=== PATIENT | female | born 1960 | race American Indian/Alaskan Native ===

== ENCOUNTER 2022-12-20 18:43 | Inpatient (IN) | payer BC ==
[2022-12-20 19:13] VITALS: BMI 20.3
[2022-12-20] MEDS ORDERED: ONDANSETRON *ODT* 4 MG TABLET SL PRN (20:22)
[2022-12-20] MEDS ORDERED: LOPERAMIDE HCL 2 MG CAPSULE PO PRN (20:22)
[2022-12-20] MEDS ORDERED: BENZONATATE 200 MG CAPSULE PO PRN (20:22)
[2022-12-20] MEDS ORDERED: NALOXONE HCL 0.4 MG/ML VIAL IM PRN (20:22)
[2022-12-20] MEDS ORDERED: DICYCLOMINE HCL 10 MG CAPSULE PO PRN (20:22)
[2022-12-20] MEDS ORDERED: NALOXONE HCL (KLOXXADO) 8 MG SPRAY NS PRN (20:22)
[2022-12-20] MEDS ORDERED: chlordiazePOXIDE HCL 25 MG CAPSULE PO PRN (20:22)
[2022-12-20] MEDS ORDERED: IBUPROFEN 600 MG TABLET (FP) PO PRN (20:22)
[2022-12-20] MEDS ORDERED: POLYETHYLENE GLYCOL (HEALTHYLAX) 3350 17 GM PACKET PO PRN (20:22)
[2022-12-20] MEDS ORDERED: IBUPROFEN 400 MG TABLET (FP) PO PRN (20:22)
[2022-12-20] MEDS ORDERED: BISMUTH SUBSALICYLATE 524 MG/30 ML PO PRN (20:22)
[2022-12-20] MEDS ORDERED: NICOTINE 10 MG CARTRIDGE (INHALER) IH PRN (20:22)
[2022-12-20] MEDS ORDERED: ALBUTEROL SO4 2.5/IPRATROPIUM 0.5 INH SOL 3 ML VIAL.NEB. NEB ONE ×2 (20:25→20:32)
[2022-12-20] MEDS ORDERED: predniSONE 20 MG TABLET (UD) PO ONE (20:30)
[2022-12-20] MEDS: PRENATAL VITAMINS W/ FOLIC ACID TABLET (FP) PO SCH (21:31)
[2022-12-20] MEDS: THIAMINE HCL 100 MG TABLET (FP) PO SCH (21:59)
[2022-12-20] MEDS: ALBUTEROL SO4 HFA INHALER IH PRN (21:59)
[2022-12-20] MEDS: MELATONIN 5 MG TABLETS PO SCH (21:59)
[2022-12-20] MEDS: MONTELUKAST NA 10 MG TABLET PO SCH (21:59)
[2022-12-20] MEDS: chlordiazePOXIDE HCL 25 MG CAPSULE PO SCH (22:03)
[2022-12-20] MEDS: ACETAMINOPHEN 325 MG TABLET (FP) PO PRN (22:05)
[2022-12-21] MEDS: ALBUTEROL SO4 HFA INHALER IH PRN ×4 (01:17→22:17)
[2022-12-21] MEDS: METHOCARBAMOL 500 MG TABLET PO PRN ×3 (01:21→22:20)
[2022-12-21] MEDS: hydrOXYzine PAMOATE 25 MG CAPSULE (FP) PO PRN ×3 (01:21→22:20)
[2022-12-21] MEDS: MAGNESIUM HYDROX 2400MG/30ML ORAL SUSPENSION 30 ML CUP PO PRN ×3 (01:21→22:22)
[2022-12-21] MEDS: chlordiazePOXIDE HCL 25 MG CAPSULE PO SCH ×4 (05:51→22:18)
[2022-12-21] MEDS: guaiFENesin 600 MG TABLET.ER (FP) PO PRN (06:05)
[2022-12-21] MEDS ORDERED: ALBUTEROL SO4 2.5/IPRATROPIUM 0.5 INH SOL 3 ML VIAL.NEB. NEB SCH (08:00)
[2022-12-21] MEDS: PRENATAL VITAMINS W/ FOLIC ACID TABLET (FP) PO SCH (10:22)
[2022-12-21] MEDS: amLODIPine BESYLATE 10 MG TABLET (FP) PO SCH (10:23)
[2022-12-21] MEDS: predniSONE 20 MG TABLET (UD) PO SCH (10:23)
[2022-12-21 11:48] LABS: HEMATOCRIT 38.1 % (32.4-45.2); HEMOGLOBIN 13.2 GM/dL (10.7-15.3); MCH 34.2 pg (25.7-33.7); MCHC 34.6 g/dl (32.0-36.0); MEAN CELL VOLUME 98.7 fl (80-96); PLATELET COUNT 335 10^3/uL (134-434); RBC 3.86 M/mm3 (3.60-5.2); RDW 14.4 % (11.6-15.6); WHITE BLOOD COUNT 8.1 K/mm3 (4.0-10.0)
[2022-12-21 11:49] LABS: ALBUMIN 3.6 g/dl (3.4-5.0); BLOOD UREA NITROGEN 18.1 mg/dL (7-18)
[2022-12-21 11:52] LABS: CREATININE 0.7 mg/dL (0.55-1.3)
[2022-12-21 11:54] LABS: BILIRUBIN,TOTAL 0.3 mg/dL (0.2-1); TOT PROT 6.8 g/dl (6.4-8.2)
[2022-12-21] MEDS: ALBUTEROL SO4 2.5/IPRATROPIUM 0.5 INH SOL 3 ML VIAL.NEB. NEB SCH ×2 (14:00→19:26)
[2022-12-21] MEDS: DOCUSATE SODIUM 100 MG CAPSULE (FP) PO SCH ×2 (14:42→22:18)
[2022-12-21] MEDS: BENZOCAINE/MENTHOL (CHLORASEPTIC ) LOZENGE MM PRN (19:55)
[2022-12-21] MEDS: MAG HYDROX/AL HYDROX/SIMETH 30 ML UNIT-DOSE CUP PO PRN (21:23)
[2022-12-21] MEDS: MELATONIN 5 MG TABLETS PO SCH (22:18)
[2022-12-21] MEDS: THIAMINE HCL 100 MG TABLET (FP) PO SCH (22:18)
[2022-12-21] MEDS: ATORVASTATIN CA 40 MG TABLET (FP) PO SCH (22:18)
[2022-12-21] MEDS: MONTELUKAST NA 10 MG TABLET PO SCH (22:18)
[2022-12-22] MEDS: ALBUTEROL SO4 2.5/IPRATROPIUM 0.5 INH SOL 3 ML VIAL.NEB. NEB SCH ×4 (00:46→18:49)
[2022-12-22] MEDS: chlordiazePOXIDE HCL 25 MG CAPSULE PO SCH ×4 (05:54→22:16)
[2022-12-22] MEDS: DOCUSATE SODIUM 100 MG CAPSULE (FP) PO SCH ×3 (05:55→22:15)
[2022-12-22] MEDS: ALBUTEROL SO4 HFA INHALER IH PRN ×2 (08:45→22:14)
[2022-12-22] MEDS: PRENATAL VITAMINS W/ FOLIC ACID TABLET (FP) PO SCH (10:35)
[2022-12-22] MEDS: SERTRALINE HCL 25 MG TABLET (FP) PO SCH (10:36)
[2022-12-22] MEDS: amLODIPine BESYLATE 10 MG TABLET (FP) PO SCH (10:36)
[2022-12-22] MEDS: predniSONE 20 MG TABLET (UD) PO SCH (10:36)
[2022-12-22] MEDS: MAGNESIUM HYDROX 2400MG/30ML ORAL SUSPENSION 30 ML CUP PO PRN (11:03)
[2022-12-22] MEDS: guaiFENesin 600 MG TABLET.ER (FP) PO PRN (11:12)
[2022-12-22] MEDS: hydrOXYzine PAMOATE 25 MG CAPSULE (FP) PO PRN (16:35)
[2022-12-22] MEDS: guaiFENesin 200 MG/10 ML 10 ML UNIT-DOSE CUPS PO PRN (16:36)
[2022-12-22] MEDS: INSULIN SLIDING SCALE (NOVOLOG) 1 VIAL SQ SCH (17:59)
[2022-12-22] MEDS: MONTELUKAST NA 10 MG TABLET PO SCH (22:15)
[2022-12-22] MEDS: ATORVASTATIN CA 40 MG TABLET (FP) PO SCH (22:15)
[2022-12-22] MEDS: MELATONIN 5 MG TABLETS PO SCH (22:16)
[2022-12-22] MEDS: THIAMINE HCL 100 MG TABLET (FP) PO SCH (22:16)
[2022-12-23] MEDS ORDERED: chlordiazePOXIDE HCL 10 MG CAPSULE PO PRN
[2022-12-23] MEDS: ALBUTEROL SO4 2.5/IPRATROPIUM 0.5 INH SOL 3 ML VIAL.NEB. NEB SCH ×2 (01:00→06:05)
[2022-12-23] MEDS: chlordiazePOXIDE HCL 10 MG CAPSULE PO SCH ×4 (05:33→22:16)
[2022-12-23] MEDS: DOCUSATE SODIUM 100 MG CAPSULE (FP) PO SCH ×3 (05:34→22:16)
[2022-12-23] MEDS: ALBUTEROL SO4 HFA INHALER IH PRN ×4 (05:35→20:57)
[2022-12-23] MEDS: INSULIN SLIDING SCALE (NOVOLOG) 1 VIAL SQ SCH ×3 (06:51→17:12)
[2022-12-23] MEDS: METHOCARBAMOL 500 MG TABLET PO PRN ×2 (09:08→22:16)
[2022-12-23] MEDS: ACETAMINOPHEN 325 MG TABLET (FP) PO PRN ×2 (09:09→22:14)
[2022-12-23] MEDS: guaiFENesin 200 MG/10 ML 10 ML UNIT-DOSE CUPS PO PRN ×2 (09:09→22:17)
[2022-12-23] MEDS: PRENATAL VITAMINS W/ FOLIC ACID TABLET (FP) PO SCH (10:08)
[2022-12-23] MEDS: amLODIPine BESYLATE 10 MG TABLET (FP) PO SCH (10:08)
[2022-12-23] MEDS: predniSONE 20 MG TABLET (UD) PO SCH (10:08)
[2022-12-23] MEDS: SERTRALINE HCL 25 MG TABLET (FP) PO SCH (10:09)
[2022-12-23] MEDS: MELATONIN 5 MG TABLETS PO SCH (22:15)
[2022-12-23] MEDS: THIAMINE HCL 100 MG TABLET (FP) PO SCH (22:16)
[2022-12-23] MEDS: ATORVASTATIN CA 40 MG TABLET (FP) PO SCH (22:16)
[2022-12-23] MEDS: MONTELUKAST NA 10 MG TABLET PO SCH (22:16)
[2022-12-24] MEDS: hydrOXYzine PAMOATE 25 MG CAPSULE (FP) PO PRN ×3 (03:15→22:13)
[2022-12-24] MEDS: ALBUTEROL SO4 HFA INHALER IH PRN ×4 (03:16→23:29)
[2022-12-24] MEDS: DOCUSATE SODIUM 100 MG CAPSULE (FP) PO SCH ×3 (05:34→22:10)
[2022-12-24] MEDS: chlordiazePOXIDE HCL 10 MG CAPSULE PO SCH ×2 (05:38→17:10)
[2022-12-24] MEDS: INSULIN SLIDING SCALE (NOVOLOG) 1 VIAL SQ SCH ×3 (06:34→17:05)
[2022-12-24] MEDS: SERTRALINE HCL 50 MG TABLET (FP) PO SCH (10:08)
[2022-12-24] MEDS: PRENATAL VITAMINS W/ FOLIC ACID TABLET (FP) PO SCH (10:08)
[2022-12-24] MEDS: predniSONE 20 MG TABLET (UD) PO SCH (10:08)
[2022-12-24] MEDS: ACETAMINOPHEN 325 MG TABLET (FP) PO PRN (10:08)
[2022-12-24] MEDS: amLODIPine BESYLATE 10 MG TABLET (FP) PO SCH (10:08)
[2022-12-24] MEDS: guaiFENesin 200 MG/10 ML 10 ML UNIT-DOSE CUPS PO PRN (10:44)
[2022-12-24] MEDS: MAG HYDROX/AL HYDROX/SIMETH 30 ML UNIT-DOSE CUP PO PRN (16:37)
[2022-12-24 18:04] VITALS: RESP 18
[2022-12-24] MEDS: MELATONIN 5 MG TABLETS PO SCH (22:10)
[2022-12-24] MEDS: MONTELUKAST NA 10 MG TABLET PO SCH (22:11)
[2022-12-24] MEDS: THIAMINE HCL 100 MG TABLET (FP) PO SCH (22:11)
[2022-12-24] MEDS: ATORVASTATIN CA 40 MG TABLET (FP) PO SCH (22:12)
[2022-12-24] MEDS: BENZOCAINE/MENTHOL (CHLORASEPTIC ) LOZENGE MM PRN (23:26)
[2022-12-25] MEDS ORDERED: chlordiazePOXIDE HCL 10 MG CAPSULE PO ONE (05:00)
[2022-12-25] MEDS: ALBUTEROL SO4 HFA INHALER IH PRN ×2 (05:14→09:26)
[2022-12-25] MEDS: DOCUSATE SODIUM 100 MG CAPSULE (FP) PO SCH (05:41)
[2022-12-25] MEDS: INSULIN SLIDING SCALE (NOVOLOG) 1 VIAL SQ SCH (06:18)
[2022-12-25] MEDS: SERTRALINE HCL 50 MG TABLET (FP) PO SCH (09:25)
[2022-12-25] MEDS: amLODIPine BESYLATE 10 MG TABLET (FP) PO SCH (09:25)
[2022-12-25] MEDS: PRENATAL VITAMINS W/ FOLIC ACID TABLET (FP) PO SCH (09:26)
[2022-12-25 09:31] VITALS: BP 115/67; PULSE 91; TEMP 98.9
== END 2022-12-25 10:40 | disposition home or self-care (01) | DRG 774 ==
LOC: YASAS 18:43 → Y3N 20:29
PROVIDERS: ADMIT Allergy & Immunology; ATTEND Surgery
PROC: HZ2ZZZZ Detoxification Services for Substance Abuse Treatment (ICD-10-PCS; principal; 2022-12-20)
DX: F10.230 Alcohol dependence with withdrawal, uncomplicated (principal); F14.10 Cocaine abuse, uncomplicated; F14.20 Cocaine dependence, uncomplicated; F13.20 Sedative, hypnotic or anxiolytic dependence, uncomplicated; F12.20 Cannabis dependence, uncomplicated; E78.2 Mixed hyperlipidemia; I10 Essential (primary) hypertension; J44.1 Chronic obstructive pulmonary disease with (acute) exacerbation; E11.9 Type 2 diabetes mellitus without complications; F19.24 Other psychoactive substance dependence with psychoactive substance-induced mood disorder; H91.92 Unspecified hearing loss, left ear; S04 Injury of cranial nerve; X95.9XXS Assault by unspecified firearm discharge, sequela; Y92.9 Unspecified place or not applicable; Z87.828 Personal history of other (healed) physical injury and trauma; Z88.8 Allergy status to other drugs, medicaments and biological substances; Z72.0 Tobacco use
CPT/HCPCS: 36415; 80053; 82962; 85027; 86593; 86780; 87811; 94640; C9803-CS; U0003; U0005

== ENCOUNTER 2023-01-06 10:57 | Inpatient (IN) | payer BC ==
[2023-01-06 11:22] VITALS: BMI 20.7
[2023-01-06] MEDS ORDERED: ONDANSETRON *ODT* 4 MG TABLET SL PRN (12:53)
[2023-01-06] MEDS ORDERED: DICYCLOMINE HCL 10 MG CAPSULE PO PRN (12:53)
[2023-01-06] MEDS ORDERED: BISMUTH SUBSALICYLATE 524 MG/30 ML PO PRN (12:53)
[2023-01-06] MEDS ORDERED: MAGNESIUM HYDROX 2400MG/30ML ORAL SUSPENSION 30 ML CUP PO PRN (12:53)
[2023-01-06] MEDS ORDERED: IBUPROFEN 400 MG TABLET (FP) PO PRN (12:53)
[2023-01-06] MEDS ORDERED: NICOTINE 10 MG CARTRIDGE (INHALER) IH PRN (12:53)
[2023-01-06] MEDS ORDERED: MAG HYDROX/AL HYDROX/SIMETH 30 ML UNIT-DOSE CUP PO PRN (12:53)
[2023-01-06] MEDS ORDERED: LOPERAMIDE HCL 2 MG CAPSULE PO PRN (12:53)
[2023-01-06] MEDS ORDERED: guaiFENesin 600 MG TABLET.ER (FP) PO PRN (12:53)
[2023-01-06] MEDS ORDERED: POLYETHYLENE GLYCOL (HEALTHYLAX) 3350 17 GM PACKET PO PRN (12:53)
[2023-01-06] MEDS ORDERED: BENZOCAINE/MENTHOL (CHLORASEPTIC ) LOZENGE MM PRN (12:53)
[2023-01-06] MEDS ORDERED: BENZONATATE 200 MG CAPSULE PO PRN (12:53)
[2023-01-06] MEDS ORDERED: NICOTINE 7 MG/24 HOURS TOPICAL PATCH TD PRN (12:53)
[2023-01-06] MEDS: chlordiazePOXIDE HCL 25 MG CAPSULE PO PRN (13:51)
[2023-01-06] MEDS ORDERED: chlordiazePOXIDE HCL 25 MG CAPSULE ONE (13:51)
[2023-01-06] MEDS: IBUPROFEN 600 MG TABLET (FP) PO PRN (14:06)
[2023-01-06] MEDS: DOCUSATE SODIUM 100 MG CAPSULE (FP) PO SCH ×2 (14:06→22:40)
[2023-01-06] MEDS: METHOCARBAMOL 500 MG TABLET PO PRN ×2 (14:06→19:17)
[2023-01-06] MEDS: hydrOXYzine PAMOATE 25 MG CAPSULE (FP) PO PRN ×2 (14:06→17:33)
[2023-01-06] MEDS: chlordiazePOXIDE HCL 25 MG CAPSULE PO SCH ×2 (17:33→22:40)
[2023-01-06] MEDS: ALBUTEROL SO4 HFA INHALER IH PRN ×2 (17:35→22:43)
[2023-01-06] MEDS ORDERED: MELATONIN 5 MG TABLETS PO SCH (22:00)
[2023-01-06] MEDS: THIAMINE HCL 100 MG TABLET (FP) PO SCH (22:39)
[2023-01-06] MEDS: SUVOREXANT 10 MG TABLET PO PRN (22:40)
[2023-01-06] MEDS: FAMOTIDINE 20 MG TABLET PO SCH (22:40)
[2023-01-06] MEDS: MONTELUKAST NA 10 MG TABLET PO SCH (22:40)
[2023-01-07] MEDS: chlordiazePOXIDE HCL 25 MG CAPSULE PO PRN (00:58)
[2023-01-07] MEDS: chlordiazePOXIDE HCL 25 MG CAPSULE PO SCH ×4 (05:36→22:09)
[2023-01-07] MEDS: DOCUSATE SODIUM 100 MG CAPSULE (FP) PO SCH ×3 (05:36→22:07)
[2023-01-07] MEDS: ALBUTEROL SO4 HFA INHALER IH PRN ×5 (05:47→23:49)
[2023-01-07] MEDS: IBUPROFEN 600 MG TABLET (FP) PO PRN ×2 (06:19→17:24)
[2023-01-07] MEDS: amLODIPine BESYLATE 10 MG TABLET (FP) PO SCH (09:46)
[2023-01-07] MEDS: TIOTROPIUM BROMIDE 2.5 MCG (SPIRIVA) RESPIMAT INHALER IH SCH (09:46)
[2023-01-07] MEDS: SERTRALINE HCL 50 MG TABLET (FP) PO SCH (09:46)
[2023-01-07] MEDS: PRENATAL VITAMINS W/ FOLIC ACID TABLET (FP) PO SCH (09:46)
[2023-01-07] MEDS: LOSARTAN POTASSIUM 50 MG TABLET PO SCH (09:46)
[2023-01-07] MEDS: FAMOTIDINE 20 MG TABLET PO SCH ×2 (09:46→22:08)
[2023-01-07] MEDS: THIAMINE HCL 100 MG TABLET (FP) PO SCH (22:07)
[2023-01-07] MEDS: MONTELUKAST NA 10 MG TABLET PO SCH (22:08)
[2023-01-07] MEDS: SUVOREXANT 10 MG TABLET PO PRN (22:09)
[2023-01-08] MEDS: DOCUSATE SODIUM 100 MG CAPSULE (FP) PO SCH ×3 (05:13→22:03)
[2023-01-08] MEDS: chlordiazePOXIDE HCL 25 MG CAPSULE PO SCH ×4 (05:13→22:04)
[2023-01-08] MEDS: IBUPROFEN 600 MG TABLET (FP) PO PRN ×4 (05:13→23:29)
[2023-01-08] MEDS: TIOTROPIUM BROMIDE 2.5 MCG (SPIRIVA) RESPIMAT INHALER IH SCH (10:32)
[2023-01-08] MEDS: LOSARTAN POTASSIUM 50 MG TABLET PO SCH (10:33)
[2023-01-08] MEDS: PRENATAL VITAMINS W/ FOLIC ACID TABLET (FP) PO SCH (10:33)
[2023-01-08] MEDS: amLODIPine BESYLATE 10 MG TABLET (FP) PO SCH (10:34)
[2023-01-08] MEDS: SERTRALINE HCL 50 MG TABLET (FP) PO SCH (10:34)
[2023-01-08] MEDS: FAMOTIDINE 20 MG TABLET PO SCH ×2 (10:34→22:03)
[2023-01-08] MEDS: ALBUTEROL SO4 HFA INHALER IH PRN ×3 (12:51→22:05)
[2023-01-08] MEDS: METHOCARBAMOL 500 MG TABLET PO PRN (22:02)
[2023-01-08] MEDS: SUVOREXANT 15 MG TABLET PO PRN (22:02)
[2023-01-08] MEDS: THIAMINE HCL 100 MG TABLET (FP) PO SCH (22:03)
[2023-01-08] MEDS: MONTELUKAST NA 10 MG TABLET PO SCH (22:03)
[2023-01-09] MEDS ORDERED: chlordiazePOXIDE HCL 10 MG CAPSULE PO PRN
[2023-01-09] MEDS: chlordiazePOXIDE HCL 10 MG CAPSULE PO SCH ×4 (05:39→22:02)
[2023-01-09] MEDS: DOCUSATE SODIUM 100 MG CAPSULE (FP) PO SCH ×3 (05:39→22:03)
[2023-01-09] MEDS: ALBUTEROL SO4 HFA INHALER IH PRN ×4 (07:56→22:06)
[2023-01-09] MEDS: hydrOXYzine PAMOATE 25 MG CAPSULE (FP) PO PRN ×3 (08:37→22:03)
[2023-01-09] MEDS: TIOTROPIUM BROMIDE 2.5 MCG (SPIRIVA) RESPIMAT INHALER IH SCH (10:08)
[2023-01-09] MEDS: PRENATAL VITAMINS W/ FOLIC ACID TABLET (FP) PO SCH (10:08)
[2023-01-09] MEDS: FAMOTIDINE 20 MG TABLET PO SCH ×2 (10:08→22:03)
[2023-01-09] MEDS: amLODIPine BESYLATE 10 MG TABLET (FP) PO SCH (10:08)
[2023-01-09] MEDS: LOSARTAN POTASSIUM 50 MG TABLET PO SCH (10:08)
[2023-01-09] MEDS: SERTRALINE HCL 50 MG TABLET (FP) PO SCH (10:08)
[2023-01-09] MEDS: IBUPROFEN 600 MG TABLET (FP) PO PRN (10:10)
[2023-01-09] MEDS: ACETAMINOPHEN 325 MG TABLET (FP) PO PRN (14:51)
[2023-01-09] MEDS: METHOCARBAMOL 500 MG TABLET PO PRN (17:29)
[2023-01-09] MEDS: MONTELUKAST NA 10 MG TABLET PO SCH (22:03)
[2023-01-09] MEDS: THIAMINE HCL 100 MG TABLET (FP) PO SCH (22:03)
[2023-01-09] MEDS: SUVOREXANT 15 MG TABLET PO PRN (22:06)
[2023-01-10] MEDS: ALBUTEROL SO4 HFA INHALER IH PRN ×4 (03:10→16:49)
[2023-01-10] MEDS: DOCUSATE SODIUM 100 MG CAPSULE (FP) PO SCH ×3 (05:49→22:00)
[2023-01-10] MEDS: chlordiazePOXIDE HCL 10 MG CAPSULE PO SCH ×2 (05:50→16:50)
[2023-01-10] MEDS: IBUPROFEN 600 MG TABLET (FP) PO PRN (05:52)
[2023-01-10] MEDS: TIOTROPIUM BROMIDE 2.5 MCG (SPIRIVA) RESPIMAT INHALER IH SCH (10:25)
[2023-01-10] MEDS: SERTRALINE HCL 50 MG TABLET (FP) PO SCH (10:26)
[2023-01-10] MEDS: FAMOTIDINE 20 MG TABLET PO SCH ×2 (10:26→21:59)
[2023-01-10] MEDS: LOSARTAN POTASSIUM 50 MG TABLET PO SCH (10:26)
[2023-01-10] MEDS: PRENATAL VITAMINS W/ FOLIC ACID TABLET (FP) PO SCH (10:26)
[2023-01-10] MEDS: amLODIPine BESYLATE 10 MG TABLET (FP) PO SCH (10:26)
[2023-01-10] MEDS: ALBUTEROL SO4 0.083% IH SOL 2.5 MG/3 ML VIAL.NEB. NEB PRN ×2 (12:15→22:03)
[2023-01-10] MEDS: SUVOREXANT 15 MG TABLET PO PRN (21:55)
[2023-01-10] MEDS: MONTELUKAST NA 10 MG TABLET PO SCH (21:59)
[2023-01-10] MEDS: THIAMINE HCL 100 MG TABLET (FP) PO SCH (21:59)
[2023-01-11] MEDS: ALBUTEROL SO4 HFA INHALER IH PRN ×2 (03:08→11:50)
[2023-01-11] MEDS ORDERED: chlordiazePOXIDE HCL 10 MG CAPSULE PO ONE (05:00)
[2023-01-11] MEDS: DOCUSATE SODIUM 100 MG CAPSULE (FP) PO SCH ×2 (06:01→13:22)
[2023-01-11] MEDS: ACETAMINOPHEN 325 MG TABLET (FP) PO PRN (06:23)
[2023-01-11] MEDS: ALBUTEROL SO4 0.083% IH SOL 2.5 MG/3 ML VIAL.NEB. NEB PRN (07:04)
[2023-01-11 09:34] VITALS: BP 124/75; PULSE 83; RESP 17; TEMP 97.2
[2023-01-11] MEDS: SERTRALINE HCL 50 MG TABLET (FP) PO SCH (10:25)
[2023-01-11] MEDS: PRENATAL VITAMINS W/ FOLIC ACID TABLET (FP) PO SCH (10:25)
[2023-01-11] MEDS: FAMOTIDINE 20 MG TABLET PO SCH (10:25)
[2023-01-11] MEDS: TIOTROPIUM BROMIDE 2.5 MCG (SPIRIVA) RESPIMAT INHALER IH SCH (10:25)
[2023-01-11] MEDS: LOSARTAN POTASSIUM 50 MG TABLET PO SCH (10:25)
[2023-01-11] MEDS: amLODIPine BESYLATE 10 MG TABLET (FP) PO SCH (10:25)
[2023-01-11] MEDS: hydrOXYzine PAMOATE 25 MG CAPSULE (FP) PO PRN (13:22)
== END 2023-01-11 13:42 | disposition home or self-care (01) | DRG 774 ==
LOC: YASAS 10:57 → Y6N 13:18
PROVIDERS: ADMIT Allergy & Immunology; ATTEND Surgery
PROC: HZ2ZZZZ Detoxification Services for Substance Abuse Treatment (ICD-10-PCS; principal; 2023-01-06)
DX: F10.230 Alcohol dependence with withdrawal, uncomplicated (principal); F14.20 Cocaine dependence, uncomplicated; F13.20 Sedative, hypnotic or anxiolytic dependence, uncomplicated; F17.210 Nicotine dependence, cigarettes, uncomplicated; F19.282 Other psychoactive substance dependence with psychoactive substance-induced sleep disorder; E78.1 Pure hyperglyceridemia; I10 Essential (primary) hypertension; J43.0 Unilateral pulmonary emphysema [MacLeod's syndrome]; K21.9 Gastro-esophageal reflux disease without esophagitis; H91.92 Unspecified hearing loss, left ear; Z88.8 Allergy status to other drugs, medicaments and biological substances
CPT/HCPCS: 26055; 87811; 94640; C9803-CS; U0003; U0005

== ENCOUNTER 2023-12-04 13:02 | Inpatient (IN) | payer BC ==
[2023-12-04 13:58] VITALS: BMI 20.9
[2023-12-04] MEDS ORDERED: hydrOXYzine PAMOATE 25 MG CAPSULE (FP) PO PRN (16:57)
[2023-12-04] MEDS ORDERED: NALOXONE HCL (KLOXXADO) 8 MG SPRAY NS PRN (16:57)
[2023-12-04] MEDS ORDERED: MAG HYDROX/AL HYDROX/SIMETH 30 ML UNIT-DOSE CUP PO PRN (16:57)
[2023-12-04] MEDS ORDERED: BISMUTH SUBSALICYLATE 524 MG/30 ML PO PRN (16:57)
[2023-12-04] MEDS ORDERED: MAGNESIUM HYDROX 2400MG/30ML ORAL SUSPENSION 30 ML CUP PO PRN (16:57)
[2023-12-04] MEDS ORDERED: IBUPROFEN 400 MG TABLET (FP) PO PRN (16:57)
[2023-12-04] MEDS ORDERED: LOPERAMIDE HCL 2 MG CAPSULE PO PRN (16:57)
[2023-12-04] MEDS ORDERED: ONDANSETRON *ODT* 4 MG TABLET SL PRN (16:57)
[2023-12-04] MEDS ORDERED: BENZONATATE 200 MG CAPSULE PO PRN (16:57)
[2023-12-04] MEDS ORDERED: POLYETHYLENE GLYCOL (HEALTHYLAX) 3350 17 GM PACKET PO PRN (16:57)
[2023-12-04] MEDS ORDERED: NALOXONE HCL 0.4 MG/ML VIAL IM PRN (16:57)
[2023-12-04] MEDS ORDERED: ALBUTEROL SO4 2.5/IPRATROPIUM 0.5 INH SOL 3 ML VIAL.NEB. NEB ONE (17:19)
[2023-12-04] MEDS ORDERED: LORazepam 2 MG TABLET ONE (17:20)
[2023-12-04] MEDS: LORazepam 2 MG TABLET PO SCH (17:29)
[2023-12-04] MEDS: ALBUTEROL SO4 2.5/IPRATROPIUM 0.5 INH SOL 3 ML VIAL.NEB. NEB ONE ×2 (17:32→21:56)
[2023-12-04] MEDS: predniSONE 20 MG TABLET (UD) PO SCH (20:14)
[2023-12-04] MEDS ORDERED: MELATONIN 5 MG TABLETS PO SCH (22:00)
[2023-12-04] MEDS: THIAMINE HCL 100 MG TABLET (FP) PO SCH (22:10)
[2023-12-04] MEDS: ACETAMINOPHEN 325 MG TABLET (FP) PO PRN (22:23)
[2023-12-05] MEDS: METHOCARBAMOL 500 MG TABLET PO PRN (04:27)
[2023-12-05] MEDS: ALBUTEROL SO4 HFA INHALER IH PRN (04:28)
[2023-12-05] MEDS: guaiFENesin 600 MG TABLET.ER (FP) PO PRN (05:32)
[2023-12-05] MEDS: LORazepam 1 MG TABLET PO PRN (08:01)
[2023-12-05] MEDS ORDERED: ALBUTEROL SO4 HFA INHALER IH PRN (08:31)
[2023-12-05] MEDS: LOSARTAN POTASSIUM 50 MG TABLET PO SCH (10:05)
[2023-12-05] MEDS: amLODIPine BESYLATE 10 MG TABLET (FP) PO SCH (10:05)
[2023-12-05] MEDS: MONTELUKAST NA 10 MG TABLET PO SCH (10:06)
[2023-12-05] MEDS: PRENATAL VITAMINS W/ FOLIC ACID TABLET (FP) PO SCH (10:06)
[2023-12-05 11:27] LABS: HEMATOCRIT 38.3 % (32.4-45.2); HEMOGLOBIN 13.4 GM/dL (10.7-15.3); MCH 34.9 pg (25.7-33.7); MCHC 35.1 g/dl (32.0-36.0); MEAN CELL VOLUME 99.6 fl (80-96); MEAN PLT VOLUME 7.9 fl (7.5-11.1); PLATELET COUNT 402 10^3/uL (134-434); RBC 3.85 M/mm3 (3.60-5.2); RDW 14.2 % (11.6-15.6); WHITE BLOOD COUNT 7.1 K/mm3 (4.0-10.0)
[2023-12-05 12:06] LABS: CHLORIDE 107 mmol/L (98-107); SODIUM 139 mmol/L (136-145)
[2023-12-05 12:09] LABS: ALBUMIN 3.6 g/dl (3.4-5.0); ANION GAP 5 mmol/L (4-13); BLOOD UREA NITROGEN 14.9 mg/dL (7-18); CO2 27 mmol/L (21-32); GLUCOSE,RANDOM 138 mg/dL (74-106)
[2023-12-05 12:12] LABS: CREATININE 0.6 mg/dL (0.55-1.3); SGOT/AST 15 U/L (15-37); SGPT/ALT 20 U/L (13-61)
[2023-12-05 12:13] LABS: BILIRUBIN,TOTAL 0.2 mg/dL (0.2-1); TOT PROT 7.1 g/dl (6.4-8.2)
[2023-12-05 12:15] LABS: ALK PHOS 80 U/L (45-117)
[2023-12-05] MEDS: BUDESONIDE/FORMETEROL FUMARATE 160/4.5 mcg INHALER IH SCH (12:44)
[2023-12-05] MEDS: ATORVASTATIN CA 40 MG TABLET (FP) PO SCH (22:19)
[2023-12-05] MEDS: SUVOREXANT 5 MG TABLET PO PRN (22:21)
[2023-12-06] MEDS: LORazepam 1 MG TABLET PO SCH (04:02)
[2023-12-06] MEDS: hydrOXYzine PAMOATE 25 MG CAPSULE (FP) PO PRN (10:49)
[2023-12-06] MEDS: TIOTROPIUM BROMIDE 2.5 MCG (SPIRIVA) RESPIMAT INHALER IH SCH (12:35)
[2023-12-06] MEDS: SUVOREXANT 10 MG TABLET PO PRN (22:17)
[2023-12-07] MEDS: LORazepam 0.5 MG TABLET PO PRN (02:13)
[2023-12-07] MEDS: LORazepam 0.5 MG TABLET PO SCH (05:09)
[2023-12-07] MEDS: hydrOXYzine PAMOATE 25 MG CAPSULE (FP) PO ONE (10:26)
[2023-12-07] MEDS: BENZOCAINE/MENTHOL (CHLORASEPTIC ) LOZENGE MM PRN (18:32)
[2023-12-07] MEDS: traZODone HCL 50 MG TABLET (FP) PO SCH (22:08)
[2023-12-08] MEDS: IBUPROFEN 600 MG TABLET (FP) PO PRN (02:29)
[2023-12-08] MEDS: LORazepam 0.5 MG TABLET PO ONE (05:07)
[2023-12-08 05:45] VITALS: RESP 18
[2023-12-08 09:14] VITALS: BP 143/81; PULSE 100; TEMP 97.4
[2023-12-08] MEDS: DICYCLOMINE HCL 10 MG CAPSULE PO PRN (09:54)
== END 2023-12-08 10:38 | disposition home or self-care (01) | DRG 774 ==
LOC: YASAS 13:02 → Y3N 19:36
PROVIDERS: ADMIT Allergy & Immunology; ATTEND Surgery
PROC: HZ2ZZZZ Detoxification Services for Substance Abuse Treatment (ICD-10-PCS; principal; 2023-12-04)
DX: F10.230 Alcohol dependence with withdrawal, uncomplicated (principal); F14.20 Cocaine dependence, uncomplicated; F17.210 Nicotine dependence, cigarettes, uncomplicated; F32.A Depression, unspecified; E78.1 Pure hyperglyceridemia; I10 Essential (primary) hypertension; J43.0 Unilateral pulmonary emphysema [MacLeod's syndrome]; H91.8X2 Other specified hearing loss, left ear; R76.8 Other specified abnormal immunological findings in serum; Z86.19 Personal history of other infectious and parasitic diseases; Z87.828 Personal history of other (healed) physical injury and trauma
CPT/HCPCS: 36415; 80053; 80305; 80307; 85027; 86593; 86780; 87635; 93005; 93010; 94640

== ENCOUNTER 2024-04-03 10:02 | Inpatient (IN) | payer BC ==
[2024-04-03 10:44] VITALS: BMI 21.5
[2024-04-03] MEDS ORDERED: LOPERAMIDE HCL 2 MG CAPSULE PO PRN (11:15)
[2024-04-03] MEDS ORDERED: NICOTINE POLACRILEX 2 MG LOZENGE BC PRN (11:15)
[2024-04-03] MEDS ORDERED: MAGNESIUM HYDROX 2400MG/30ML ORAL SUSPENSION 30 ML CUP PO PRN (11:15)
[2024-04-03] MEDS ORDERED: LORazepam 1 MG TABLET PO PRN (11:15)
[2024-04-03] MEDS ORDERED: NALOXONE HCL 0.4 MG/ML VIAL IM PRN (11:15)
[2024-04-03] MEDS ORDERED: POLYETHYLENE GLYCOL (HEALTHYLAX) 3350 17 GM PACKET PO PRN (11:15)
[2024-04-03] MEDS ORDERED: BISMUTH SUBSALICYLATE 262 MG/15 ML BTL PO PRN (11:15)
[2024-04-03] MEDS ORDERED: NALOXONE (NARCAN) HCL 4 MG/0.1 ML SPRAY NS PRN (11:15)
[2024-04-03] MEDS ORDERED: ONDANSETRON *ODT* 4 MG TABLET SL PRN (11:15)
[2024-04-03] MEDS ORDERED: ACETAMINOPHEN 325 MG TABLET (FP) PO PRN (11:15)
[2024-04-03] MEDS ORDERED: BENZONATATE 200 MG CAPSULE PO PRN (11:15)
[2024-04-03] MEDS ORDERED: IBUPROFEN 400 MG TABLET (FP) PO PRN (11:15)
[2024-04-03] MEDS ORDERED: DICYCLOMINE HCL 10 MG CAPSULE PO PRN (11:15)
[2024-04-03] MEDS: FAMOTIDINE 20 MG TABLET PO SCH (12:13)
[2024-04-03] MEDS ORDERED: LORazepam 2 MG TABLET ONE (12:16)
[2024-04-03] MEDS ORDERED: PRENATAL VITAMINS W/ FOLIC ACID TABLET (FP) PO ONE (12:27)
[2024-04-03] MEDS: LORazepam 2 MG TABLET PO ONE (12:30)
[2024-04-03] MEDS: PRENATAL VITAMINS W/ FOLIC ACID TABLET (FP) PO SCH (12:31)
[2024-04-03] MEDS: LORazepam 2 MG TABLET PO SCH (12:32)
[2024-04-03] MEDS: IBUPROFEN 600 MG TABLET (FP) PO PRN (14:13)
[2024-04-03] MEDS: hydrOXYzine PAMOATE 25 MG CAPSULE (FP) PO PRN (14:16)
[2024-04-03] MEDS: PATIENT'S OWN MEDICATION (NON-FORMULARY) (Hydroxyzine Hcl [Hydroxyzine Hcl] 25 MG Tablet) PO SCH (14:59)
[2024-04-03] MEDS: ALBUTEROL SO4 HFA INHALER IH PRN (16:31)
[2024-04-03] MEDS: METHOCARBAMOL 500 MG TABLET PO PRN (17:05)
[2024-04-03] MEDS ORDERED: MELATONIN 5 MG TABLETS PO SCH (22:00)
[2024-04-03] MEDS ORDERED: SUVOREXANT 10 MG TABLET PO PRN (22:00)
[2024-04-03] MEDS: BUDESONIDE/FORMETEROL FUMARATE 160/4.5 mcg INHALER IH SCH (22:17)
[2024-04-03] MEDS: ATORVASTATIN CA 40 MG TABLET (FP) PO SCH (22:19)
[2024-04-03] MEDS: THIAMINE 100 MG TABLET PO SCH (22:19)
[2024-04-03] MEDS: SUVOREXANT 10 MG TABLET PO PRN (22:20)
[2024-04-03] MEDS: guaiFENesin 600 MG TABLET.ER (FP) PO PRN (22:26)
[2024-04-04] MEDS: MONTELUKAST NA 10 MG TABLET PO SCH (10:52)
[2024-04-04] MEDS: LOSARTAN POTASSIUM 50 MG TABLET PO SCH (10:53)
[2024-04-04] MEDS: amLODIPine BESYLATE 10 MG TABLET (FP) PO SCH (10:53)
[2024-04-04 11:21] LABS: HEMOGLOBIN 13.1 GM/dL (10.7-15.3); MCH 33.8 pg (25.7-33.7); MCHC 33.7 g/dl (32.0-36.0); MEAN CELL VOLUME 100.4 fl (80-96); MEAN PLT VOLUME 8.8 fl (7.5-11.1); PLATELET COUNT 395 10^3/uL (134-434); RBC 3.88 M/mm3 (3.60-5.2); RDW 14.2 % (11.6-15.6); WHITE BLOOD COUNT 7.8 K/mm3 (4.0-10.0)
[2024-04-04 11:39] LABS: ALBUMIN 3.8 g/dl (3.4-5.0); CALCIUM 9.1 mg/dL (8.5-10.1)
[2024-04-04 11:41] LABS: CREATININE 0.7 mg/dL (0.55-1.3)
[2024-04-04 11:44] LABS: BILIRUBIN,TOTAL 0.2 mg/dL (0.2-1); TOT PROT 7.4 g/dl (6.4-8.2)
[2024-04-04] MEDS: LACTULOSE 20 GM/30 ML UDC (FOR ORAL USE ONLY) PO SCH (17:01)
[2024-04-04] MEDS: MAG HYDROX/AL HYDROX/SIMETH 30 ML UNIT-DOSE CUP PO PRN (21:07)
[2024-04-05] MEDS: LORazepam 1 MG TABLET PO SCH (05:38)
[2024-04-05] MEDS: SUVOREXANT 15 MG TABLET PO PRN (22:21)
[2024-04-06] MEDS ORDERED: LORazepam 0.5 MG TABLET PO PRN
[2024-04-06] MEDS: LORazepam 0.5 MG TABLET PO SCH (05:20)
[2024-04-06] MEDS: BENZOCAINE/MENTHOL (CHLORASEPTIC ) LOZENGE MM PRN (17:40)
[2024-04-07] MEDS: LORazepam 0.5 MG TABLET PO ONE (05:57)
[2024-04-07 09:03] VITALS: BP 141/74; PULSE 89; RESP 16; TEMP 97.1
== END 2024-04-07 10:28 | disposition home or self-care (01) | DRG 774 ==
LOC: YASAS 10:02 → Y6N 12:09
PROVIDERS: ADMIT Allergy & Immunology; ATTEND Surgery
PROC: HZ2ZZZZ Detoxification Services for Substance Abuse Treatment (ICD-10-PCS; principal; 2024-04-03)
DX: F10.230 Alcohol dependence with withdrawal, uncomplicated (principal); F14.20 Cocaine dependence, uncomplicated; F13.20 Sedative, hypnotic or anxiolytic dependence, uncomplicated; F12.20 Cannabis dependence, uncomplicated; F19.282 Other psychoactive substance dependence with psychoactive substance-induced sleep disorder; F19.280 Other psychoactive substance dependence with psychoactive substance-induced anxiety disorder; F19.24 Other psychoactive substance dependence with psychoactive substance-induced mood disorder; F41.9 Anxiety disorder, unspecified; F43.10 Post-traumatic stress disorder, unspecified; E78.1 Pure hyperglyceridemia; I10 Essential (primary) hypertension; J43.0 Unilateral pulmonary emphysema [MacLeod's syndrome]; K21.9 Gastro-esophageal reflux disease without esophagitis; R79.89 Other specified abnormal findings of blood chemistry; Z62.810 Personal history of physical and sexual abuse in childhood; Z87.820 Personal history of traumatic brain injury
CPT/HCPCS: 36415; 80053; 80305; 80307; 82140; 85027; 86593; 86780; 93005; 93010